=== PATIENT | male | born 1945 | race African-American/Black ===

== ENCOUNTER → 2019-02-19 | Outpatient (CLI) | payer OTHER, MEDICAID ==
[2018-09-25 09:11] VITALS: BP 148/74
[~2019-02-19] MED LIST: AMLO10TA8 PO; AMLO25PO MC; ASPI-482 PO; B CO1TAB10 PO; BYSTOLIC5 MG PO; CHOL2000 PO; CLON0.1T PO; CLON0.2T PO; CYAN500L2 PO; DULO30CA2 PO; ESOM40SU PO; EZET10TA20 PO; FENO54TA PO; FLAX10003 PO; FURO20TA3 PO; INSU100V8 SQ; INSU100V9 SQ; LOSA100T14 PO; MULT1TAB52 PO; NITR0.4T24 SL; POTA20PA30 PO; SILD20TA2 PO; TEST5GEL TD; TRIA1POW10 MC
[2019-02-19 11:38] LABS: BASO # 0.1 x10^3/uL (0.0-0.2); BASO % 1 % (0-3); EOS # 0.5 x10^3/uL (0.0-0.7); EOS % 5 % (0-3); HEMATOCRIT 38.5 % (39.0-53.0); HEMOGLOBIN 12.9 g/dL (13.0-17.5); LYMPH # 2.2 x10^3/uL (1.0-4.8); LYMPH % 24 % (24-48); MEAN CORPUSCULAR HEMOGLOBIN 28 pg (25-35); MEAN CORPUSCULAR HGB CONC 34 g/dL (31-37); MEAN CORPUSCULAR VOLUME 85 fL (79-100); MONO # 0.5 x10^3/uL (0.0-1.1); MONO % 5 % (0-9); NEUT # 5.8 x10^3/uL (1.8-7.7); NEUT % 64 % (31-73); PLATELET COUNT 642 x10^3/uL (140-400); RED BLOOD COUNT 4.54 x10^6/uL (4.30-5.70); RED CELL DISTRIBUTION WIDTH 14.6 % (11.5-14.5); WHITE BLOOD COUNT 9.2 x10^3/uL (4.0-11.0)
[2019-02-19 11:59] LABS: ALBUMIN 3.5 g/dL (3.4-5.0); CALCIUM 9.7 mg/dL (8.5-10.1); CREATININE 3.2 mg/dL (0.7-1.3); PHOSPHORUS 3.7 mg/dL (2.6-4.7); POTASSIUM 3.4 mmol/L (3.5-5.1)
[2019-02-20 01:08] LABS: TOTAL SERUM CREATININE 2.91 mg/dL (0.76-1.27); TOTAL URINE CREATININE 76.8 mg/dL (Not Estab.)
[2019-02-20 02:07] LABS: UR PROTEIN 390.8 mg/dL (Not Estab.)
[2019-02-20 12:10] LABS: CALCIUM PTH 10.3 mg/dL (8.6-10.2); CREATININE PTH 2.88 mg/dL (0.76-1.27); PHOSPHORUS PTH 3.8 mg/dL (2.5-4.5); PTH INTACT 122 pg/mL (15-65)
== END | disposition home or self-care (01) ==
LOC: LAB 10:59
PROVIDERS: ATTEND Internal Medicine Nephrology
DX: E11.21 Type 2 diabetes mellitus with diabetic nephropathy (principal); E11.22 Type 2 diabetes mellitus with diabetic chronic kidney disease; I12.9 Hypertensive chronic kidney disease with stage 1 through stage 4 chronic kidney disease, or unspecified chronic kidney disease; N18.3 Chronic kidney disease, stage 3 (moderate); Z68.30 Body mass index [BMI] 30.0-30.9, adult
CPT/HCPCS: 36415; 80069; 82575; 83970; 84156; 85025

== ENCOUNTER → 2019-02-26 | Outpatient (CLI) | payer OTHER, MEDICAID ==
[2018-09-25 09:11] VITALS: BP 148/74
--- NOTE | 2019-02-26 14:47 | RAD ---
EXAM: Renal sonogram. HISTORY: Renal insufficiency. TECHNIQUE: Sonographic imaging of the kidneys and bladder was performed. COMPARISON: CT dated 09/22/2018. FINDINGS: The kidneys are normal in size. There are multiple bilateral renal cysts, largest of which on the right measures 3.4 cm and the largest of which on the left measures 4.3 cm. There is echogenic renal parenchyma. There is bladder wall thickening, a component of which is likely due to underdistention. The prostate volume is 99 cc. IMPRESSION: 1. Polycystic kidneys. 2. Echogenic renal parenchyma, a finding which can be seen with medical renal disease. 3. Mild bladder wall thickening, possibly due to chronic outlet obstruction given evidence of prostatomegaly. Electronically signed by: Julieta Pacheco MD (02/26/2019 2:44 PM) [id number]
== END | disposition home or self-care (01) ==
LOC: US 15:08
PROVIDERS: ATTEND Nurse Practitioner Adult Health
DX: Q61.3 Polycystic kidney, unspecified (principal); N18.3 Chronic kidney disease, stage 3 (moderate); N32.89 Other specified disorders of bladder
CPT/HCPCS: 76770

== ENCOUNTER → 2019-02-28 | Outpatient (CLI) | payer OTHER, MEDICAID ==
[2018-09-25 09:11] VITALS: BP 148/74
[2019-02-28 15:23] LABS: BILIRUBIN,URINE NEGATIVE (NEG); CLARITY,URINE CLEAR; COLOR,URINE YELLOW; NITRITE,URINE NEGATIVE (NEG); PROTEIN,URINE >=300 mg/dL (NEG-TRACE)
[2019-02-28 15:50] LABS: ALBUMIN 3.7 g/dL (3.4-5.0); CALCIUM 9.7 mg/dL (8.5-10.1); CREATININE 2.9 mg/dL (0.7-1.3); GFR 25.8; PHOSPHORUS 3.8 mg/dL (2.6-4.7); POTASSIUM 4.1 mmol/L (3.5-5.1)
[2019-02-28 15:57] LABS: BACTERIA,URINE 0 /HPF (0-FEW); HYALINE CASTS, URINE OCCASIONAL /HPF; SQUAMOUS EPITHELIAL CELL,UR OCC /LPF; WBC,URINE OCC /HPF (0-4)
== END | disposition home or self-care (01) ==
LOC: LAB 14:36
PROVIDERS: ATTEND Nurse Practitioner Adult Health
DX: E11.21 Type 2 diabetes mellitus with diabetic nephropathy (principal); E11.22 Type 2 diabetes mellitus with diabetic chronic kidney disease; I12.9 Hypertensive chronic kidney disease with stage 1 through stage 4 chronic kidney disease, or unspecified chronic kidney disease; N18.3 Chronic kidney disease, stage 3 (moderate); Z68.30 Body mass index [BMI] 30.0-30.9, adult
CPT/HCPCS: 36415; 80069; 81001

== ENCOUNTER → 2019-05-19 | Outpatient (CLI) | payer OTHER, MEDICAID ==
[2018-09-25 09:11] VITALS: BP 148/74
[2019-05-19 14:12] LABS: BASO # 0.1 x10^3/uL (0.0-0.2); BASO % 1 % (0-3); EOS # 0.5 x10^3/uL (0.0-0.7); EOS % 5 % (0-3); HEMATOCRIT 35.7 % (39.0-53.0); HEMOGLOBIN 11.7 g/dL (13.0-17.5); LYMPH # 2.4 x10^3/uL (1.0-4.8); LYMPH % 21 % (24-48); MEAN CORPUSCULAR HEMOGLOBIN 28 pg (25-35); MEAN CORPUSCULAR HGB CONC 33 g/dL (31-37); MEAN CORPUSCULAR VOLUME 85 fL (79-100); MONO # 0.5 x10^3/uL (0.0-1.1); MONO % 5 % (0-9); NEUT # 7.7 x10^3/uL (1.8-7.7); NEUT % 68 % (31-73); PLATELET COUNT 616 x10^3/uL (140-400); RED BLOOD COUNT 4.22 x10^6/uL (4.30-5.70); RED CELL DISTRIBUTION WIDTH 14.1 % (11.5-14.5); WHITE BLOOD COUNT 11.3 x10^3/uL (4.0-11.0)
[2019-05-19 14:55] LABS: ALBUMIN 3.5 g/dL (3.4-5.0); CALCIUM 9.5 mg/dL (8.5-10.1); CREATININE 3.3 mg/dL (0.7-1.3); GFR 22.2; PHOSPHORUS 3.8 mg/dL (2.6-4.7); POTASSIUM 3.6 mmol/L (3.5-5.1); URIC ACID 7.2 mg/dL (3.5-7.2)
[2019-05-20 12:10] LABS: CALCIUM PTH 10.2 mg/dL (8.6-10.2); CREATININE PTH 3.27 mg/dL (0.76-1.27); PHOSPHORUS PTH 4.1 mg/dL (2.8-4.1); PTH INTACT 159 pg/mL (15-65)
== END | disposition home or self-care (01) ==
LOC: LAB 13:52
PROVIDERS: ATTEND Nurse Practitioner Adult Health
DX: I12.9 Hypertensive chronic kidney disease with stage 1 through stage 4 chronic kidney disease, or unspecified chronic kidney disease (principal); E11.21 Type 2 diabetes mellitus with diabetic nephropathy; N18.3 Chronic kidney disease, stage 3 (moderate); Q61.2 Polycystic kidney, adult type
CPT/HCPCS: 36415; 80069; 82728; 83540; 83550; 83970; 84550; 85025